=== PATIENT | male | born 1970 | race Caucasian/White ===

== ENCOUNTER → 2022-04-18 | Day surgery (SDC) | payer MEDICAID ==
[~2022-04-18] VITALS: Ht 185.4 cm; Wt 115.7 kg
[~2022-04-18] MED LIST: BUPIVACAINE HCL/PF 0.5% (5MG/ML) 10ML ONE; BUPR1PAT23 TD; CEFAZOLIN SODIUM 1000MG/VIAL ONE; CETI10TA11 PO; DEXAMETHASONE 4MG/ML 1ML VIAL ONE; DOXY100C5 PO; FENTANYL CITRATE/PF 50MCG/ML 2ML VIAL ONE; FLUT15.844 BOTHNSTRLS; FLUT1BLS10 IH; FURO40TA5 PO; GABA-532 PO; GLYCOPYRROLATE 0.2 MG/ML 2ML VIAL ONE; HYDR50TA55 PO; HYDROMORPHONE HCL/PF 2MG/ML CPJ IV PRN; HYDROMORPHONE HCL/PF 2MG/ML CPJ ONE; LABETALOL 5MG/ML SYR 20 MG/4 ML SYRINGE IV PRN; LACTATED RINGERS 1,000 ML IV SCH; LIDOCAINE HCL 1% 10 MG/ML 10ML VIAL ONE; LIDOCAINE HCL 1% 50ML VIAL (10MG/ML) ONE; MECL-159 PO; MEPERIDINE HCL/PF 25MG/ML CPJ IV PRN; METH-774 PO; MIDAZOLAM HCL 2 MG/2 ML VIAL ONE; NEOSTIGMINE METHYLSULFATE 1MG/ML 10 ML VIAL ONE; OMEP20TA23 PO; ONDA4TAB50 PO; ONDANSETRON HCL 4MG/2ML INJ IV PRN; ONDANSETRON HCL 4MG/2ML INJ ONE; POLYMYXIN B SULFATE 500000 UNITS/VIAL ONE; PROPOFOL 200MG/20ML VIAL IV ONE; ROCURONIUM BROMIDE 10MG/ML VIAL 5ML IV ONE; SIMV-46 PO; SKIN ADHESIVE 0.7 GM EA TOP ONE; SUCCINYLCHOLINE CHLORIDE 200MG/10ML IV ONE; [UNRECOGNIZED DRUG - CODE] PO
[2022-04-18 06:18] LABS: *AMPHETAMINES SCREEN URINE NEGATIVE (NEGATIVE); *BARBITURATES SCREEN URINE NEGATIVE (NEGATIVE); *BENZODIAZEPINES SCREEN URINE NEGATIVE (NEGATIVE); *COCAINE SCREEN URINE NEGATIVE (NEGATIVE); CANNABINOID URINE SCREEN NEGATIVE (NEGATIVE); METHADONE URINE SCREEN NEGATIVE (NEGATIVE); OPIATES URINE SCREEN PRESUMTIVE POSITIVE (NEGATIVE); PHENCYCLIDINE URINE SCREEN NEGATIVE (NEGATIVE)
[2022-04-18 09:55] VITALS: BP 138/96
== END | disposition home or self-care (01) ==
LOC: OR 05:34
PROVIDERS: ATTEND Surgery
DX: K42.0 Umbilical hernia with obstruction, without gangrene (principal); K21.9 Gastro-esophageal reflux disease without esophagitis; E78.00 Pure hypercholesterolemia, unspecified; J45.40 Moderate persistent asthma, uncomplicated; G47.00 Insomnia, unspecified; Z79.899 Other long term (current) drug therapy; Z98.890 Other specified postprocedural states; Z20.822 Contact with and (suspected) exposure to COVID-19
CPT/HCPCS: 49594; 80305; 87426; 93005; C1781; J0330; J0690; J1100; J1170; J2250; J2405; J2704; J2710; J3010; J3490; 88305